=== PATIENT | female | born 1955 | race Caucasian/White ===

== ENCOUNTER 2025-02-13 13:24 | Emergency (ER) | payer MEDICARE, MEDICAID, SELFPAY ==
--- OUTSIDE RECORDS SUMMARY | 2025-02-13 13:26 | XMS_ITS | Clinical Summary ---
Author Organization [facility] Address [address] [address] Phone Care Team Providers Care Dermatologist Name Role Phone Ronda Henriquez MD Primary Care Provider U Ronda Reis MD Unavailable Unavail able Allergies No known active allergies Medications polyethylene glycol (MIRALAX) Powder Use entire 255g bottle with 64oz of clear liquid as directed for colonoscopy prep. 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 Gender Identity Not on file Sexual Orientation Not on file Last Filed Vital Signs Vital Sign Reading Time Taken Comments Blood Pressure - - Pulse - - Temperature - - Respiratory Rate - - Oxygen Saturation - - Inhaled Oxygen Concentration - - Weight 66.7 kg (147 lb) 09/21/2016 7:00 AM CDT Height 160 cm (5' 3) 09/21/2016 7:00 AM CDT Body Mass Index 26.04 09/21/2016 7:00 AM CDT Plan of Treatment Health Maintenance Due Date Last Done Comments Hepatitis C Virus (HCV) Screening 1955 TdaP Immunization 1955 Cologuard 08/25/1999 Colonoscopy 08/25/1999 Colorectal Cancer Screening 08/25/1999 Immunochemical Fecal Occult Blood 08/25/1999 Pneumococcal Immunization (5 0+ years) (1 of 1 - PCV) 2004 Zoster Immunization (1 of 2) 2004 SARS-COV-2 Immunization (1 - 2023-25 season) 2024 Influenza Immunization (#1) 2025 Respiratory Syncytial Virus (RSV) Immunization (Adult) (1 - 1-dose 75+ series) 2029 Mammogram Discontinued 08/07/2016 Hepatitis B Immunization Aged Out No longer eligible based on patient's age to complete this topic Human Papillomavirus (HPV) Immunization Aged Out No longer eligible b ased on patient's age to complete this topic Meningococcal Immunization (ACWY) Aged Out No longer eligible based on patient's age to complete this topic Rotavirus Immunization Aged Out No lo nger eligible based on patient's age to complete this topic Procedures Procedure Name Priority Date/Time Associated Diagnosis Comments JACKI SCREENING BILATERAL DIGITAL W CAD Routine 08/07/2016 11:52 AM INTAKE WORKER Visit for screening mammogram from Last 3 Months or Most Recently Relevant to Health Maintenance Results * JACKI SCREENING BILATERAL DIGITAL W CAD (08/07/2016 11:52 AM INTAKE WORKER) Anatomical Region Laterality Modality breast Bilateral Mammography 08/07/2016 11:3 6 AM INTAKE WORKER Narrative 08/08/2016 7:40 AM INTAKE WORKER - JACKI SCREENING BILATERAL DIGITAL W CAD BILATERAL DIGITAL SCREENING MAMMOGRAM WITH CAD WITH MEDIOLATERAL OBLIQUE CRANIOCAUDAL: 08/07/2016 The study was acquired using digital technology and interpreted from soft copy. Current study was also evaluated with ICAD version 7.2. CLINICAL: Baseline screening. Patient has no complaints. No personal history of cancer. No family history of breast cancer. COMPARISONS: No prior exams were available for comparison. BREAST TISSUE:There are scattered fibroglandular densities in both breasts. FINDINGS: No significant masses, calcifications, or other findings are seen in either breast. IMPRESSION: BI-RAD 1 NEGATIVE There is no mammographic evidence of malignancy. A 1 year screening mammogram is recommended. The patient has been or will be contacted. The patient will be entered into a reminder system with a target due date of 1 year for her next screening exam. Electronically signed by: Taylor cortez/josette:08/07/2016 13:41:19 X Ray Equipment Mechanic: Roz HENDERSON)(M), [facility] letter sent: Normal Exam Reading location: MON BI-RADS: 1 Negative Procedure Note Taylor Hay MD - 08/08/2016 - JACKI SCREENING BILATERAL DIGITAL W CAD BILATERAL DIGITAL SCREENING MAMMOGRAM WITH CAD WITH MEDIOLATERAL OBLIQUE CRANIOCAUDAL: 08/07/2016 The study was acquired using digital technology and interpreted from soft copy. Current study was also evaluated with ICAD version 7.2. CLINICAL: Baseline screening. Patient has no complaints. No personal history of cancer. No family history of breast cancer. COMPARISONS: No prior exams were available for comparison. BREAST TISSUE:There are scattered fibroglandular densities in both breasts. FINDINGS: No significant masses, calcifications, or other findings are seen in either breast. IMPRESSION: BI-RAD 1 NEGATIVE There is no mammographic evidence of malignancy. A 1 year screening mammogram is recommended. The patient has been or will be contacted. The patient will be entered into a reminder system with a target due date of 1 year for her next screening exam. Electronically signed by: Taylor Hay M.D. ml/penrad:08/07/2016 13:41:19 X Ray Equipment Mechanic: Roz NORIEGAR)(M), [facility] letter sent: Normal Exam Reading location: MON BI-RADS: 1 Negative Ronda Henriquez MD IMG MAMMO ORDERABLES Fin al Result from Last 3 Months or Most Recently Relevant to Health Maintenance Insurance MEDICAID [employer] Care Teams Dermatologist Relationship Specialty Start Date End Date Ronda Henriquez MD PCP - General Obstetrics & Gynecology 06/14/16 Ronda Henriquez MD Obstetrics & Gynecology 06/14/16
--- OUTSIDE RECORDS SUMMARY | 2025-02-13 13:26 | XMS_ITS | Clinical Summary ---
Author Organization [facility] Address [address] [place] [id number] Care Team Providers Care Brick Shader Name Role Phone Torrey Hua MD Primary Care Provider [phone] Allergies No known active allergies Medications amLODIPine (NORVASC) 5 MG tablet Take 5 mg by mouth in the morning. 10/01/2023 Active aspirin (ST BOBBI) 81 MG EC tablet Take 81 mg by mouth in the morning. 10/01/2023 Active atorvastatin (LIPITOR) 40 MG tablet Take 40 mg by mouth in the morning. 10/01/2023 Active losartan (COZAAR) 100 MG tablet Take 100 mg by mouth in the morning. 10/01/2023 Active Varenicline Tartrate, Starter, 0.5 MG X 11 & 1 MG X 42 tablet therapy pack Use as directed on package instructions, try to quit smoking after 1 week. 10/01/2023 Active Active Problems Problem Noted Date Diagnosed Date Stenosis of left carotid artery 09/25/2023 Overview (12/11/2023): Last Assessment & Plan: Severe greater than 70% stenosis of the left ICA, overall still below 80% stenosis and remains asymptomatic. Continue ongoing surveillance with repeat carotid duplex in 6 months. Prediabetes 04/15/2023 Peripheral vascular disease 10/11/2022 Overview (12/11/2023): Last Assessment & Plan: Able lower extremity claudication with severe occlusive disease bilaterally. Continue risk factor modification with ASA statin therapy, again strongly urged her to quit smoking. Follow up in 6 months with repeat lower extremity Doppler. Essential hypertension 06/06/2016 Overview (12/11/2023): Last Assessment & Plan: BP Readings from Last 3 Encounters: 10/01/23 142/76 09/25/23 167/73 05/16/23 170/55 Vitals BP 142/76 (BP Location: Left arm, Patient Position: Sitting) Pulse 79 Temp 36.2 C (97.1 F) (Temporal) Resp 16 Ht 157.5 cm (5' 2.01) Wt 66 kg (145 lb 6.4 oz) SpO2 95% BMI 26.59 kg/m Lab Results Component Value Date POTASSIUM 4.0 10/11/2022 Not at goal at this time C/w norvac 5 mg every day Increase losartan to 100 mg every day Family History Medical History Relation Comments Cancer Brother Diabetes Brother Heart disease Brother Hypertension Brother Stroke Brother Heart disease Father Hypertension Father Stroke Father Cancer Mother Hypertension Mother Cancer Sister Dementia Sister Hypertension Sister Stroke Sister Relation Status Comments Brother Father Mother Sister Social History Tobacco Use Types Packs/Day Years Used Date Smoking Tobacco: Every Day Cigarettes Tobacco Cessation:Ready to Q uit: Not Asked; Counseling Given: Not Answered Alcohol Use Standard Drinks/Week Comments Not Currently 0 (1 standard drink = 0.6 oz pur e alcohol) Comments Unknown Sex and Gender Information Value Date Recorded Sex Assigned at Not on file Legal Sex Female 5:02 PM EDT Gender Identity Not on file Sexual Orientation Not on file Last Filed Vital Signs Vital Sign Reading Time Taken Comments Blood Pressure 150/80 02/11/2024 2:04 PM CDT Pulse 83 02/11/2024 2:04 PM CDT Temperature 36.7 C (98 F) 02/11/2024 2:04 PM CDT Respiratory Rate 18 02/11/2024 2:04 PM CDT Oxygen Saturation 97% 02/11/2024 2:04 PM CDT Inhaled Oxygen Concentration - - Weight 64.9 kg (143 lb) 02/11/2024 2:04 PM CDT Height 160 cm (5' 3) 02/11/2024 2:04 PM CDT Body Mass Index 25.33 02/11/2024 2:04 PM CDT Plan of Treatment Health Maintenance Due Date Last Done Comments Breast Cancer Screening 1955 Pneumococcal Vaccine: 50+ Ye ars (1 of 2 - PCV) 1973 Colorectal Cancer Screening: Annual FOBT 08/25/2003 Colorectal Cancer Screening: Sigmoidoscopy 08/25/2003 Influenza Vaccine (#1) 2025 Colorectal Cancer Screening: Colonoscopy 01/29/2033 01/29/2023 Hepatitis B Vaccine Aged Out No longe r eligible based on patient's age to complete this topic Insurance Medicare Medicaid [place] Care Teams Brick Shader Relationship Specialty Start Date End Date Torrey Hua MD [address] [place] [address] [place] [address] [place] [address] PCP - General Family Medicine 10/07/23
--- OUTSIDE RECORDS SUMMARY | 2025-02-13 13:26 | XMS_ITS | Clinical Summary ---
Author Organization [facility] Healthcare Address [address] [place] [address] Care Team Providers Care Coining Press Operator Name Role Phone Ebonie Hua MD Primary Care Provider [phone] Allergies No known active allergies Medications aspirin 81 mg enteric coated tablet Take 1 tablet (81 mg total) by mouth daily 100 tablet 1 4 Active coenzyme Q10 (Co Q-10) 10 mg capsule Take 1 capsule (10 mg total) by mouth daily 90 capsule 4 Active Additional Information Patient not taking.Informant: Self, Child, Reported on 10/27/2024 carvediloL (COREG) 6.25 mg tablet Take 1 tablet (6.25 mg total) by mouth 2 (two) times a day with meals 180 tablet 1 4 Active vitamin b complex tablet Take 1 tablet by mouth daily Active cholecalciferol (VITAMIN D-3) 99339 unit capsule Take 1 capsule (10,000 Units total) by mouth daily Active losartan (COZAAR) 100 mg tablet TAKE 1 TABLET(100 MG) BY MOUTH DAILY 90 tablet 1 5 Active amLODIPine (NORVASC) 5 mg tablet Take 1.5 tablets (7.5 mg total) by mouth daily 135 tablet 1 5 04/25/20 25 Active atorvastatin (LIPITOR) 40 mg tablet TAKE 1 TABLET(40 MG) BY MOUTH DAILY 90 tablet 1 5 Active Brilinta 90 mg tablet TAKE 1 TABLET(90 MG) BY MOUTH TWICE DAILY 60 tablet 1 5 Active Active Problems Problem Noted Date Diagnosed Date Hypertensive kidney disease with stage 4 chronic kidney disease 10/27/2024 Assessment & Plan (10/27/2024 1:57 PM CDT): BP Readings from Last 3 Encounters: 10/27/24 158/80 09/30/24 135/79 06/24/24 (!) 178/85 Vitals BP 158/80 (BP Location: Left arm, Patient Position: Sitting) Pulse 74 Resp 16 Ht 157.5 cm (5' 2.01) Wt 60.8 kg (134 lb 1.6 oz) SpO2 98% BMI 24.52 kg/m Lab Results Component Value Date POTASSIUM 4.1 06/01/2024 Not at goal Referralt o nephro due to worsening ckd Increase norvasc to 7.5 mg every day Continue losartan 100 mg every day, coreg 6.25 bid Carotid stenosis, asymptomatic, left 06/01/2024 Carotid stenosis, left 05/06/2024 Assessment & Plan (05/08/2024 10:31 AM LABORATORY IMMUNOLOGIST): High-grade left ICA stenosis. Risks benefits alternatives to left TCAR discussed, risks including bleeding, infection, nerve injury, stroke, need for further surgery. She wished to proceed. Continue ASA Plavix statin therapy. Stenosis of left carotid artery 09/25/2023 Assessment & Plan (10/01/2024 10:45 AM CDT): Right ICA stent is patent and current duplex. Mild stenosis to the left ICA. Remains asymptomatic. Continue statin aspirin and Brilinta follow-up in 6 months for routine surveillance. Assessment & Plan (06/24/2024 10:15 AM LABORATORY IMMUNOLOGIST): Left TCAR 06/01/2024. Patient continues to do well. Continue aspirin, Brilinta risk factor modifications and follow up in 3 months with a carotid duplex. Assessment & Plan (04/01/2024 12:31 PM CDT): Moderate stenosis to the right with severe stenosis to the left internal carotid artery. Patient remains asymptomatic. Recommend smoking cessation, continue aspirin and statin therapy follow-up in the next 1-2 weeks with CTA of the carotids. Assessment & Plan (09/25/2023 12:42 PM CDT): Severe greater than 70% stenosis of the left ICA, overall still below 80% stenosis and remains asymptomatic. Continue ongoing surveillance with repeat carotid duplex in 6 months. Current smoker 04/15/2023 Assessment & Plan (04/22/2024 10:53 AM LABORATORY IMMUNOLOGIST): Recommend smoking cessation Ct lung cancer sc now Assessment & Plan (04/01/2024 12:31 PM CDT): Patient with history of tobacco abuse who is a current everyday 1/2 pack per day smoker. I had a greater than 3 minute discussion with the patient on the importance of smoking cessation and the negative affects on their cardiovascular health. Patient understands importance of cessation. Assessment & Plan (10/01/2023 2:11 PM CDT): Coty cifuentes Discussed quitting smoking Prediabetes 04/15/2023 Medicare annual wellness visit, subsequent 04/15 Assessment & Plan (04/22/2024 10:53 AM LABORATORY IMMUNOLOGIST): A yearly Medicare Annual Wellness Visit has been performed today. Aruna Larry is not up to date on screening tests. She is in need of DEXA- these have been ordered. She is not up to date on needed preventative vaccinations. He is getting his covid-19 vaccination after he leaves here this morning. Assessment & Plan (04/15/2023 12:38 PM CDT): A yearly Medicare Annual Wellness Visit has been performed today. Aruna Larry is not up to date on screening tests. She is in need of DEXA- these have been ordered. She is not up to date on needed preventative vaccinations. He is getting his covid-19 vaccination after he leaves here this morning. Bruit of left carotid artery 01/30/2023 Assessment & Plan (03/04/2023 7:37 AM CDT): Severe greater than 70% stenosis of the left internal carotid artery, she is asymptomatic and this is less than 80% stenosis so I have recommended continuing surveillance with repeat carotid duplex in 6 months. Continue risk factor modification with ASA statin therapy and good blood pressure control. Assessment & Plan (01/30/2023 11:00 AM CDT): Carotid duplex Personal history of colonic polyps 12/05/2022 Encounter for screening colonoscopy 12/05/2022 PVD (peripheral vascular disease) 10/11/2022 Assessment & Plan (09/25/2023 12:41 PM CDT): Able lower extremity claudication with severe occlusive disease bilaterally. Continue risk factor modification with ASA statin therapy, again strongly urged her to quit smoking. Follow up in 6 months with repeat lower extremity Doppler. Assessment & Plan (03/04/2023 7:37 AM CDT): Known chronic occlusion of the infrarenal aorta with stable claudication to bilateral lower extremities. I strongly encouraged her to quit smoking. Continue risk factor modification with ASA statin therapy and good blood pressure control. Follow up in 6 months for repeat Doppler. Assessment & Plan (01/30/2023 11:00 AM CDT): Claudication of bilateral lower extremities with known infrarenal aortic occlusion and iliac occlusion. Overall no life-limiting claudication rest pain or wounds. Continue risk factor modification with ASA and statin therapy. ABIs ordered for further evaluation. I strongly encouraged her to quit smoking. Centrilobular emphysema 10/11/2022 Assessment & Plan (04/15/2023 12:27 PM CDT): Stable at this time Start wellbutrin for smoking cessation Abdominal aortic atherosclerosis 10/11/2022 Assessment & Plan (04/15/2023 12:28 PM CDT): Following with vascular Continue lipitor 40 mg every day and asa 81 mg every day Essential hypertension 10/11/2022 Assessment & Plan (05/08/2024 10:31 AM LABORATORY IMMUNOLOGIST): Stable continue amlodipine Assessment & Plan (04/22/2024 11:00 AM LABORATORY IMMUNOLOGIST): BP Readings from Last 3 Encounters: 04/22/24 160/90 04/01/24 (!) 196/85 10/01/23 142/76 Vitals BP 160/90 (BP Location: Left arm, Patient Position: Sitting) Pulse 87 Resp 16 Ht 157.5 cm (5' 2.01) Wt 63.2 kg (139 lb 6.4 oz) SpO2 98% BMI 25.49 kg/m Lab Results Component Value Date POTASSIUM 3.4 02/06/2024 Not at goal at this time C/w norvasc 10 mg every day C/w losartan1 00 mg every day, start coreg 6.25 mg bid Assessment & Plan (10/01/2023 2:10 PM CDT): BP Readings from Last 3 Encounters: 10/01/23 [...] Increase losartan to 100 mg every day Assessment & Plan (09/25/2023 12:41 PM CDT): Stable continue amlodipine 5 mg. Assessment & Plan (04/15/2023 12:22 PM CDT): BP Readings from Last 3 Encounters: 04/15/23 164/81 01/29/23 148/90 10/11/22 140/70 Vitals BP 164/81 Pulse 85 Temp 36.2 C (97.1 F) (Temporal) Resp 16 Wt 66.2 kg (146 lb) SpO2 99% BMI 26.70 kg/m Lab Results Component Value Date POTASSIUM 4.0 10/11/2022 Not at goal at this time C/w norvac 5 mg every day Start losartan 50 mg every day Assessment & Plan (03/04/2023 7:38 AM CDT): Stable continue amlodipine 5 mg. Assessment & Plan (01/30/2023 11:00 AM CDT): Stable continue amlodipine 5 mg. Assessment & Plan (10/11/2022 12:50 PM CDT): BP Readings from Last 3 Encounters: 10/11/22 140/70 05/01/21 (!) 185/83 04/03/18 137/78 Vitals BP 140/70 Pulse 89 Resp 16 Ht 157.5 cm (5' 2) Wt 68.9 kg (152 lb) SpO2 96% BMI 27.80 kg/m Lab Results Component Value Date POTASSIUM 4.3 02/09/2021 Not at goal at this time Will start norvac 5 mg every day Mixed hyperlipidemia 10/11/2022 Assessment & Plan (05/08/2024 10:31 AM LABORATORY IMMUNOLOGIST): Stable continue Lipitor Assessment & Plan (04/22/2024 10:53 AM LABORATORY IMMUNOLOGIST): Lab Results Component Value Date CHOL 132 10/03/2023 CHOL 211 (H) 10/11/2022 CHOL 209 (H) 02/09/2021 Lab Results Component Value Date HDL 37 (L) 10/03/2023 HDL 44 10/11/2022 HDL 40 02/09/2021 Lab Results Component Value Date LDLCALC 64 10/03/2023 LDLCALC 120 10/11/2022 LDLCALC 136 (H) 02/09/2021 LDL 136 (H) 11/12/2017 Lab Results Component Value Date TRIG 157 (H) 10/03/2023 TRIG 237 (H) 10/11/2022 TRIG 164 (H) 02/09/2021 No results found for: POCCHDLR No results found for: POCNONHDL No results found for: POCCHLPL Not at goal at this time Continue lipitor 40 mg every day Assessment & Plan (10/01/2023 2:11 PM CDT): Lab Results Component Value Date CHOL 211 (H) 10/11/2022 CHOL 209 (H) 02/09/2021 CHOL 210 (H) 11/12/2017 Lab Results Component Value Date HDL 44 10/11/2022 HDL 40 02/09/2021 HDL 47 (L) 11/12/2017 Lab Results Component Value Date LDLCALC 120 10/11/2022 LDLCALC 136 (H) 02/09/2021 LDL 136 (H) 11/12/2017 Lab Results Component Value Date TRIG 237 (H) 10/11/2022 TRIG 164 (H) 02/09/2021 TRIG 138 11/12/2017 No results found for: POCCHDLR No results found for: POCNONHDL No results found for: POCCHLPL Not at goal at this time Continue lipitor 40 mg every day Assessment & Plan (09/25/2023 12:41 PM CDT): Stable continue Lipitor 40 mg. Assessment & Plan (01/30/2023 11:00 AM CDT): Stable continue Lipitor 40 mg. Encounters Date Type Department Care Team Description 11/26/2024 Telephone [facility] Primary Care at [address] [place] [phone] Ebonie Hua MD Appointment from Last 3 Months Immunizations Immunization Administration Dates Next Due Influenza, Unspecified 09/14/2024(Deferr ed: Patient Refused),04/22/2024(Deferred: Patient Refused),04/15/2023(Deferred: Patient Refused) Pneumococcal Conjugate, Unspecified 04/15/2023(D eferred: Patient Refused) Tetanus Toxoid, Unspecified 06/17/2010 Surgical History Surgery Date Site/Laterality Comments COLONOSCOPY SECTION TONSILLECTOMY Medical History Medical History Date Comments Hypertension Smoking Family History Medical History Relation Name Comments Diabetes Brother 1 Hudson Hapgood Early Brother 2 Coyr Hapgood Depression Daughter Katey Larry Heart disease Father Yfn Matagood Diabetes Maternal Grandmother Melinda Majano Arthritis Mother Taylor Valentin Cancer Mother Taylor Valentin Breast cancer Sister 1 Stroke Sister 2 Courtney Jade Relation Name Status Comments Brother 1 Hudson Hapgood Brother 2 Cory Hapgood Daughter Katey Larry Father Yfn Mendiola Maternal Grandmother Melinda Majano Mother Taylor Valentin Sister 1 Sister 2 Courtney Jade Social History Tobacco Use Types Packs/Day Years Used Date Smoking Tobacco: Every Day Cigarettes 1 15 Smokeless Tobacco: Never Tobacco Cessation:Ready to Q uit: Not Asked; Counseling Given: Not Answered [facility] Utilities Answer Date Recorded In the past 12 months has th e electric, gas, oil, or water company threatened to shut off services in your home? No 06/02/2024 Social Connection and Isolation Panel Answer Date Recorded In a typical week, how many times do you talk on the phone with family, friends, or neighbors? More than three times a week 06/02/2024 How often do you get togethe r with friends or relatives? More than three times a week 06/02/2024 How often do you attend chur ch or restorationism services? Never 06/02/2024 Do you belong to any clubs o r organizations such as zoroastrianism groups, unions, fraternal or athletic groups, or school groups? No 06/02/2024 How often do you attend meet ings of the clubs or organizations you belong to? Never 06/02/2024 Are you , , di vorced, , never , or living with a partner? 06/02/2024 AUDIT-C Answer Date Recorded Q1: How often do you have a drink containing alcohol? Never 06/01/2024 Q2: How many drinks containi ng alcohol do you have on a typical day when you are drinking? Patient does not drink Q3: How often do you have si x or more drinks on one occasion? Never 06/01/2024 Overall Financial Resource Strain (CARDIA) Answe r Date Recorded How hard is it for you to pa y for the very basics like food, housing, medical care, and heating? Not very hard 06/02/2024 PHQ-2 Answer Date Recorded PHQ-2 Total Score (If total score is 3 or more points, staff should administer the PHQ-9) 0 10/27/2024 Hunger Vital Sign Answer Date Recorded Within the past 12 months, y ou worried that your food would run out before you got the money to buy more. Never true 06/02/20 24 Within the past 12 months, t he food you bought just didn't last and you didn't have money to get more. Never true 06/02/2024 PRAPARE - Transportation Answer Date Re corded In the past 12 months, has l ack of transportation kept you from medical appointments or from getting medications? No 05/17 In the past 12 months, has l ack of transportation kept you from meetings, work, or from getting things needed for daily living? No 06/02/2024 Housing Stability Vital Sign Answer Vega e Recorded In the last 12 months, was t here a time when you were not able to pay the mortgage or rent on time? No 06/02/2024 In the past 12 months, how m any times have you moved where you were living? 0 06/02/2024 At any time in the past 12 m [facility], were you homeless or living in a halfway (including now)? No 06/02/2024 Personal Safety Answer Date Recorded Have you ever been in or are you currently in a harmful physical or emotional relationship or is someone making you feel afraid or unsafe? Denies 06/01/2024 Comments No Sex and Gender Information Value Date Recorded Sex Assigned at Not on file Legal Sex Female 10:01 AM CDT Gender Identity Female 01/24/2024 2:27 PM CDT Sexual Orientation Straight 01/24/2024 2: 27 PM CDT Obstetrics History Para Term AB IAB SAB Ectopic Multiple Livin g Live Births 2 2 2 Date Outcome GA Total Labor Labor/2nd/3rd Weight Sex Type Anes PTL Miracle A1 A5 Name Clin Term Term Last Filed Vital Signs Vital Sign Reading Time Taken Comments Blood Pressure 158/80 10/27/2024 1:34 PM CDT did not take meds Pulse 74 10/27/2024 1:34 PM CDT Temperature 36.6 C (97.8 F) 06/01/2024 10:00 PM LABORATORY IMMUNOLOGIST Respiratory Rate 16 10/27/2024 1:34 PM CDT Oxygen Saturation 98% 10/27/2024 1:3 4 PM CDT Inhaled Oxygen Concentration - - Weight 60.8 kg (134 lb 1.6 oz) 10/27/2024 1:34 PM CDT Height 157.5 cm (5' 2.01) 10/27/2024 1 :34 PM CDT Body Mass Index 24.52 10/27/2024 1:34 PM CDT Plan of Treatment Health Maintenance Due Date Last Done Comments DTaP/Tdap/Td Vaccine (1 - Tdap) 1965 Hepatitis B Screening 1972 Pneumococcal vaccine 65+ (1 of 2 - PCV) 1973 Zoster Vaccine (1 of 2) 2004 Osteoporosis Screening-Bone Density Scan 02/09/2023 02/09/2021 Breast Cancer Screening-Mammogram 11/18/2023 11/17/2022, 02/09/2021, 08/07/2016 Influenza Vaccine (#1) 2025 Well Visit 65+ 04/22/2025 04/22/2024, 04/15/2023 Depression Screening 10/27/2025 10/27/2024, 04/22/2024, 10/01/2023, Additional history exists Fall Risk Assessment 10/27/2025 10/27/2024, 06/01/2024, 04/22/2024, Additional history exists Colon Cancer Screening-Colonoscopy 01/29/2033 01/29/2023, 03/28/2018 Hepatitis C Screening Completed 10/11/2022 Colon Cancer Screening-CT Colonography Discontinued 01/29/2023, 03/28/2018 Colon Cancer Screening-DNA Stool Discontinued 01/30/20 23, 03/28/2018 Colon Cancer Screening-FIT Discontinued 01/29/2023, Colon Cancer Screening-Sigmoidoscopy Discontinued 01/29/2023, 03/28/2018 Medical Devices Implanted Type Area Senior Pricing Analyst Device Identifier Shelf Expiration Date Model / Serial / Lot [employer] Enroute Uber Flex 8mm .065in 40mm 57cm Delivery System Angle Tip Sr-0840-[id number] - [id number] Implanted:Qty: 1 on 06/01/2024 by Niko Powell MD at [facility] Stent Left: Carotid [employer] [id number] 08/14/2026 SR-0840-C S / / [id number] Procedures Procedure Name Priority Date/Time Associated Diagnosis Comments COLONOSCOPY 01/29/2023 8:58 AM CDT SCREENING MAMMOGRAM BILATERAL W MATT Schedule Routine, Read Routine (OP Routine) 11/17/2022 12:35 PM CDT Visit for screening mammogram HEPATITIS C ANTIBODY Routine 10/11/2022 1:30 PM CDT Preventative health care DEXA AXIAL SKELETON BONE DENSITY 1 OR MORE SITES Schedule Routine, Read Routine (OP Routine) 02/09/2021 9:06 AM CDT Abdominal pain, unspecified abdominal location from Last 3 Months or Most Recently Relevant to Health Maintenance Results * COLONOSCOPY (01/29/2023 8:58 AM CDT) Anatomical Region Laterality Modality Other Narrative Procedure Note Nima Kee MD - 01/29/2023 8:58 AM CDT [facility] Patient Name: Aruna Larry Procedure Date: 01/29/2023 8:58 AM Date of : 1955 Admit Type: Outpatient Age: 67 Gender: Female Attending MD: Nima Kee M.D. Room: [facility] ENDOSCOPY ROOM 1 Note Status: Finalized Patient Profile: This is a 67 year old female. History of polyps. No family history of colon cancer Procedure: Colonoscopy Indications: High risk colon cancer surveillance: Personalhistory of colonic polyps, Last colonoscopy: March 2018 Referring MD: Ebonie Hua M.D. Providers: Nima Kee M.D. Impression: - External and prolapse internal hemorrhoids - Three 10 to 12 mm polyps in the descending colon, removed with a cold snare. Resected andretrieved. - Granularity in the distal rectum. Biopsied. Recommendation: - Await pathology results. - Repeat colonoscopy in 3 years for screeningpurposes. - Continue present medications. Medicines: Monitored Anesthesia Care Complications: No immediate complications. Estimated Blood Loss: Estimated blood loss: none. Procedure: Pre-Anesthesia Assessment: - Prior to the procedure, a History and Physicalwas performed, and patient medications and allergieswere reviewed. The patient's tolerance of previous anesthesia was also reviewed. The risks andbenefits of the procedure and the sedation options and risks were discussed with the patient. All questions were answered, and informed consent was obtained. Prior Anticoagulants: The patient has taken noanticoagulant or antiplatelet agents. ASA Grade Assessment: Per anesthesia note and evaluation. After reviewing the risks and benefits, the patient was deemed in satisfactory condition to undergo the procedure. The benefits, risks and alternatives of theprocedure and sedation were discussed and informed consentwas obtained. All questions were answered. Please referto the signed informed consent document in the medical record. The bowel preparation used was Miralax and bisacodyl tablets via split dose instruction. The scope was passed under direct vision. The Pediatric Colonoscope [id number]-[id number] was introducedthrough the anus and advanced to the the cecum, identifiedby appendiceal orifice and ileocecal valve. Thequality of the bowel preparation was good. Bowel prep was administered using a split dose. Findings: Medium-sized external hemorrhoids and prolapse internal hemorrhoidswere found on perianal exam. The sigmoid colon, transverse colon, ascending colon and cecumappeared normal. Three sessile polyps were found in the descending colon. The polypswere 10 to 12 mm in size. These polyps were removed with a cold snare. Resection and retrieval were complete. A localized area of granular mucosa and mildly thickened folds wasfound in the distal rectum. Biopsies were taken with a cold forceps for histology. Internal hemorrhoids were found during retroflexion. The hemorrhoids were medium to large in size Electronically signed by Nima Kee M.D. Nima Kee M.D. 01/29/2023 11:10:34 AM Number of Addenda: 0 Note Initiated On: 01/29/2023 8:58 AM Procedure Code(s): --- Professional --- 36182, Colonoscopy, flexible; with removal of tumor(s), polyp(s), or other lesion(s) by snare technique 50521, 59, Colonoscopy, flexible; with biopsy, single or multiple Diagnosis Code(s): --- Professional --- Z86.010, Personal history of colonic polyps K64.8, Other hemorrhoids D12.4, Benign neoplasm of descending colon K62.89, Other specified diseases of anus and rectum CPT copyright 2020 [employer]. All rights reserved. The codes documented in this report are preliminary and upon house cleaner supervisor reviewmay be revised to meet current compliance requirements. Recognized by the [employer] for promoting quality in endoscopy Nima Kee MD ENDOSCOPY PROCEDURES Final Result * Screening Mammogram Bilateral W Matt (11/17/2022 12:35 PM CDT) Anatomical Region Laterality Modality Breast Bilateral Mammography 11/18/2022 7:54 AM CDT Impressions 11/18/2022 7:54 AM CDT There is no mammographic evidence of malignancy. A 1 year screening mammogram is recommended. BI-RADS: 1 - Negative. The patient has been or will be contacted. The patient will be entered into a reminder system with a target due date of 1 year for her next mammogram. Electronically signed by: GOPAL Norwood 11/18/2022 7:54 AM CDT EXAMINATION: SCREENING MAMMOGRAM BILATERAL W MATT ORDERING HEALTHCARE PROVIDER: EBONIE HUA HISTORY: Routine screening mammography. COMPARISON: 02/09/2021, 08/07/2016. TECHNIQUE: CC and MLO views of both breasts were obtained with digital technique using digital breast tomosynthesis with C view. Computer aided detection was utilized. FINDINGS: DENSITY: The breasts have scattered areas of fibroglandular density. BREASTS: There is no new suspicious finding in either breast on mammogram. Ebonie Hua MD IMG MAMMO PROCEDURES Final Resul t * Hepatitis C antibody (10/11/2022 1:30 PM CDT) Hep C Ab Nonreactive Nonreactive MARCOS GUTIERREZ (JF) Comment: Interpretive Data Nonreactive: Antibodies to HCV not detected. Does NOT exclude the possibility of recent exposure to HCV. Equivocal: Equivocal for HCV antibodies. Supplemental molecular testing will be automatically performed to determine infection status in accordance with current CDC screening recommendations. Reactive: Positive for HCV antibodies. This may represent current or past HCV infection. Supplemental molecular testing will be automatically performed to determine current infection status in accordance with current CDC screening recommendations. Interpretive data was last revised on 2019. Testing performed by: [facility], [address] [place] [address]., [id number] Blood 10/11/2022 1:30 PM CDT 10/11/2022 3:42 PM CDT Ebonie Hua MD LAB MICROBIOLOGY - GENERAL ORDER JOSS Final Result MARCOS GUTIERREZ (JF) 1 [facility] Department [place] [address] * Dexa Axial Skeleton Bone Density 1 or 2 Site (02/09/2021 9:06 AM CDT) Anatomical Region Laterality Modality Body N/A Other 02/09/2021 9:58 AM CDT Narrative 02/09/2021 9:59 AM CDT EXAM DESCRIPTION: DEXA AXIAL SKELETON BONE DENSITY 1 OR MORE SITES REASON FOR STUDY: Post-menopausal female, screening for osteoporosis. Senior Pricing Analyst/Model: [employer] A (S/N [id number]) CLINICAL INFORMATION: Current height: 63 inches Maximum height: 63 inches Weight: 151.4 pounds Risk factors: Current tobacco use COMPARISON: None available. FINDINGS: AP LUMBAR SPINE L1-L4: Total BMD is 0.933 g/cm2 T-score is -1.0 LEFT HIP: Total BMD is 0.824 g/cm2 T-score is -1.0 Femoral neck BMD is 0.710 g/cm2 T-score is -1.3 IMPRESSION: 1. Low bone mass by WHO criteria. 2. The WHO fracture risk assessment tool (FRAX) indicates that the 10 year risk for a major osteoporotic fracture is 8.7% and the 10 year risk for a hip fracture is 1.3%. The FRAX tool has not been validated in patients currently or previously treated with pharmacotherapy for osteoporosis. In such patients, clinical judgement must be exercised in interpreting FRAX scores as the fracture risk may be overestimated. REFERENCE: Bone mineral density: Normal (T-score above or = -1.0) Low bone mass (T-score between -1.0 and -2.5) replaces the previously used term osteopenia Osteoporosis (T-score = or below -2.5) Medical evaluation for secondary causes of low bone mineral density may be appropriate. FRAX is a World Health Organization validated fracture risk assessment tool that calculates a person's 10 year probability of a major osteoporosis related fracture and hip fracture. According to the National Osteoporosis Foundation guidelines, postmenopausal women and men age 50 or older with low bone mass and a 10 year probability of a major osteoporosis related fracture = or greater than 20% or a 10 year probability of a hip fracture = or greater than 3% should be considered for treatment. For further information, including treatment recommendations, please refer to the 2013 ISCD Official Positions (http://www.iscd.org) and the NOF's Clinician's Guide to Prevention and Treatment of Osteoporosis (http://www.nof.org/professionals/clinical-guidelines) THIS IS AN ELECTRONICALLY VERIFIED FINAL REPORT 02/09/2021 9:59 AM - Electronically signed by Feroz Álvarez M.D. AB: Report ID: [id number] Reading Location: [place] [address] Procedure Note Feroz Álvarez MD - 02/09/2021 EXAM DESCRIPTION: DEXA AXIAL SKELETON BONE DENSITY 1 OR MORE SITES REASON FOR STUDY: Post-menopausal female, screening for osteoporosis. Senior Pricing Analyst/Model: H[employer] Horizon A (S/N [id number]) CLINICAL INFORMATION: Current height: 63 inches Maximum height: 63 inches Weight: 151.4 pounds Risk factors: Current tobacco use COMPARISON: None available. FINDINGS: AP LUMBAR SPINE L1-L4: Total BMD is 0.933 g/cm2 T-score is -1.0 LEFT HIP: Total BMD is 0.824 g/cm2 T-score is -1.0 Femoral neck BMD is 0.710 g/cm2 T-score is -1.3 IMPRESSION: 1. Low bone mass by WHO criteria. 2. The WHO fracture risk assessment tool (FRAX) indicates that the 10 year risk for a major osteoporotic fracture is 8.7% and the 10 year risk for ahip fracture is 1.3%. The FRAX tool has not been validated in patients currently or previously treated with pharmacotherapy for osteoporosis. In such patients, clinical judgement must be exercised in interpreting FRAX scores as the fracturerisk may be overestimated. REFERENCE: Bone mineral density: Normal (T-score above or = -1.0) Low bone mass (T-score between -1.0 and -2.5) replaces thepreviously used term osteopenia Osteoporosis (T-score = or below -2.5) Medical evaluation for secondary causes of low bone mineral density may be appropriate. FRAX is a World Health Organization validated fracture risk assessmenttool that calculates a person's 10 year probability of a major osteoporosisrelated fracture and hip fracture. According to the National OsteoporosisFoundation guidelines, postmenopausal women and men age 50 or older with low bonemass and a 10 year probability of a major osteoporosis related fracture = or greater than 20% or a 10 year probability of a hip fracture = or greaterthan 3% should be considered for treatment. For further information, including treatment recommendations, please referto the 2013 ISCD Official Positions (http://www.iscd.org) and the NOF's Clinician's Guide to Prevention and Treatment of Osteoporosis (http://www.nof.org/professionals/clinical-guidelines) THIS IS AN ELECTRONICALLY VERIFIED FINAL REPORT 02/09/2021 9:59 AM - Electronically signed by Feroz Álvarez M.D. AB: Report ID: [id number] Reading Location: [place] [address] [place] Hu MD IMG DXA PROCEDURES Final Result from Last 3 Months or Most Recently Relevant to Health Maintenance Insurance MEDICARE [facility] Address: [facility] [address] [place] [address] [facility] MEDICARE [place] MEDICARE [facility] Address: [address] [place] [id number] [employer] Advance Directives For more information, please contact: [phone] * Full Code (Latest Code Status on File) Date Activated Date Inactivated Comments 06/01/2024 10:40 AM 06/02/2024 3:27 PM * Full Code Date Activated Date Inactivated Comments 01/29/2023 9:01 AM 01/29/2023 4:09 PM * Full Code Date Activated Date Inactivated Comments 01/29/2023 9:01 AM 01/29/2023 9:01 AM * Full Code Date Activated Date Inactivated Comments 03/28/2018 10:03 AM 03/28/2018 2:06 PM Care Teams Coining Press Operator Relationship Specialty Start Date End Date Ebonie Hua MD [address] [facility] [address] [place] [address] [place] [id number] PCP - General Family Medicine 10/11/22
--- OUTSIDE RECORDS SUMMARY | 2025-02-13 13:26 | XMS_ITS | Encounter Summary ---
Author Organization [facility] Facility Care Team Providers Care Mule Developer Name Role Phone Bernarda Rudd MD Primary Care Provider [phone] [place] Hu MD Primary Care Provider + Torrey Hua MD Primary Care Provider [phone] Encounter Details Date Type Department Care Team (Latest Contact Info) Description 03/28/2018 Orders Only [facility] CLINCONV ProviderMelissa MD [address] [place] [address] Social History Tobacco Use Types Packs/Day Years Used Date Smoking Tobacco: Never Smokeless Tobacco: Never Comments Unknown Sex and Gender Information Value Date Recorded Sex Assigned at Not on file Legal Sex Female 10:01 AM CDT Gender Identity Female 01/24/2024 2:27 PM CDT Sexual Orientation Straight 01/24/2024 2: 27 PM CDT documented as of this encounter Plan of Treatment Not on file documented as of this encounter Procedures Procedure Name Priority Date/Time Associated Diagnosis Comments COLONOSCOPY - SCAN 03/28/2018 12 :00 AM CDT documented in this encounter Results * COLONOSCOPY - SCAN (03/28/2018 12:00 AM CDT) Narrative 03/28/2018 12:00 AM CDT Ordered by an unspecified provider. Historical Provider Final Res ult documented in this encounter Visit Diagnoses Not on filedocumented in this encounter Care Teams Mule Developer Relationship Specialty Start Date End Date Bernarda Rudd MD PCP - General 01/13/18 02/05/21 [place] [id number] [address] PCP - General 02/06/21 10/10/22 Torrey Hua MD [address] [place] [address] [address] [place] [address] [place] [id number] PCP - General Family Medicine 10/11/22 documented as of this encounter
--- OUTSIDE RECORDS SUMMARY | 2025-02-13 13:26 | XMS_ITS | Encounter Summary ---
Author Organization [facility] Facility Care Team Providers Care Offender Job Retention Specialist Name Role Phone Bernarda Rudd MD Primary Care Provider [phone] [place] Hu MD Primary Care Provider + Torrey Hua MD Primary Care Provider [phone] Encounter Details Date Type Department Care Team (Latest Contact Info) Description 04/07/2018 Orders Only [facility] CLINCONV ProviderMelissa MD [address] [place] [id number] Social History Tobacco Use Types Packs/Day [...] Date/Time Associated Diagnosis Comments COLONOSCOPY - SCAN 04/07/2018 12 :00 AM CDT documented in this encounter Results * COLONOSCOPY - SCAN (04/07/2018 12:00 AM CDT) Narrative 04/07/2018 12:00 AM CDT Ordered by an unspecified provider. Historical Provider Final Res ult documented in this encounter Visit Diagnoses Not on filedocumented in this encounter Care Teams Offender Job Retention Specialist Relationship Specialty Start Date End Date Bernarda Rudd MD PCP - General 01/13/18 02/05/21 [place] [address] [address] PCP - General 02/06/21 10/10/22 Torrey Hua MD [address] [place] [address] [address] [place] [address] [place] [id number] PCP - General Family Medicine 10/11/22 documented as of this encounter
--- OUTSIDE RECORDS SUMMARY | 2025-02-13 13:26 | XMS_ITS | Encounter Summary ---
Author Organization [facility] Facility Care Team Providers Care Laborer Aquatic Life Name Role Phone Bernarda Rudd MD Primary Care Provider [phone] [place] Hu MD Primary Care Provider + Torrey Hua MD Primary Care Provider [phone] Encounter Details Date Type Department Care Team (Latest Contact Info) Description 01/13/2018 Orders Only [facility] CLINCONV ProviderMelissa MD [address] [place] [address] Social History Tobacco Use Types Packs/Day Years Used Date Smoking Tobacco: Never Assessed Comments Unknown Sex and Gender Information Value Date Recorded Sex Assigned at Not on file Legal Sex Female 10:01 AM CDT Gender Identity Female 01/24/2024 2:27 PM CDT Sexual Orientation Straight 01/24/2024 2: 27 PM CDT documented as of this encounter Plan of Treatment Not on file documented as of this encounter Procedures Procedure Name Priority Date/Time Associated Diagnosis Comments SCAN - LABS 02/05/2018 12:00 AM CDT documented in this encounter Results * SCAN - LABS (02/05/2018 12:00 AM CDT) Narrative 02/05/2018 12:00 AM CDT Ordered by an unspecified provider. Historical Provider Final Res ult documented in this encounter Visit Diagnoses Not on filedocumented in this encounter Care Teams Laborer Aquatic Life Relationship Specialty Start Date End Date Bernarda Rudd MD PCP - General 01/13/18 02/05/21 [place] [address] [facility] [address] [place] [address] PCP - General 02/06/21 10/10/22 Torrey Hua MD [address] [facility] [address] [place] [address] [place] [id number] PCP - General Family Medicine 10/11/22 documented as of this encounter
[2025-02-13 13:33] VITALS: BP 217/80; PULSE 80; RESP 20; TEMP 36.7; O2SAT 99
--- NOTE | 2025-02-13 13:34 | ED_ITS ---
HPI - Eye Problem General Chief complaint: Skin/Abscess/Foreign Body Stated complaint: PINK EYE,RASH Time Seen by Provider: 02/13/25 13:41 Source: patient Mode of arrival: ambulatory Limitations: no limitations History of Present Illness HPI Narrative: 69 y/o female presented for c/o right eye swelling and redness. Onset yesterday. Endorses itching around the eye. Also reports right forearm itching and redness. Reports exposure to pink eye one week ago. Denies vision changes, photophobia, fb sensation, or purulent drainage. Pt legally blind left eye. Pt with elevated BP on arrival, states she did not take her BP meds today. chief complaint: eye pain Related Data Home Medications ?Medication ?Instructions ?Recorded ?Confirmed ?Last Taken ?Type aspirin .ROUTE 02/13/25 Unknown His tory atorvastatin 40 mg tablet mg 02/13/25 Unknown History losartan 100 mg tablet mg 02/13/25 Unknown History ticagrelor 90 mg tablet (Brilinta) mg 02/13/25 Unknow n History Allergies Allergy/AdvReac Type Severity Reaction Status Date / Time No Known Allergies Allergy Verified 02/13/25 13:39 Review of Systems Review of Systems: CONSTITUTIONAL: Denies body aches, fever, chills EYES:Endorses swelling, redness and itching right eye; Denies visual changes FB sensation, photophobia ENT: Denies rhinorrhea, congestion, sore throat, or otalgia. CARDIOVASCULAR: Denies chest pain, palpitations RESPIRATORY: Denies cough or dyspnea. GASTROINTESTINAL: Denies abdominal pain, nausea, vomiting, or diarrhea. SKIN: reports rash, itching, rigth arm and right eye MUSCULOSKELETAL: Denies back pain, joint pain, or myalgia. NEUROLOGIC: Denies headache, numbness, tingling, or weakness. All systems reviewed & are unremarkable except as noted in HPI and below PMFSH Comments At time of signature, I have reviewed and agree with nursing past medical, surgical, social and family history unless otherwise noted. Please see nursing chart for further information. There is no relevant family history pertinent to the presenting complaint Exam Narrative: GENERAL: Well-appearing HEAD: Normocephalic, atraumatic. EYES: Right eye lid swelling/redness surrounding the eye, no occlusion. No conjunctival injection, no purulent drainage. EOMI. Lid eversion shows no foreign body ENT: Mucous membranes pink and moist. No rhinorrhea. TMs normal bilaterally. Throat normal. Uvula midline. CHEST: Clear to auscultation. HEART: Regular rate and rhythm. ABDOMEN: Soft, nontender, nondistended SKIN: Right AC area with erythema, mild swelling, evidence of scratching. No blisters or open areas. Warm, dry, Normal skin turgor. NEURO: No focal deficits. Alert and oriented x3 PSYCH: Normal affect. Course Course Emergency Course: Patient is aware of diagnosis, understands and agrees to treatment plan. Anticipatory guidance given. Patient agrees to follow-up as directed and is aware of reasons to seek care at the emergency department. Portions of this record may have been created with voice recognition software Level of Care: Express Care Visit Vital Signs Vital signs: Vital Signs Temperature 98.1 F 02/13/25 13:33 Pulse Rate 80 02/13/25 13:33 Respiratory Rate 20 02/13/25 13:33 Blood Pressure 217/80 H 02/13/25 13:33 Pulse Oximetry 99 02/13/25 13:33 Oxygen Delivery Room Air 02/13/25 13:33 Temperature 98.1 F 02/13/25 13:33 Pulse Rate 80 02/13/25 13:33 Respiratory Rate 20 02/13/25 13:33 Blood Pressure 217/80 H 02/13/25 13:33 Pulse Oximetry 99 02/13/25 13:33 Oxygen Delivery Room Air 02/13/25 13:33 MDM - Eye Problem MDM Narrative Medical decision making narrative: Discussed physical exam findings; right eye preseptal cellulitis, right forearm cellulitis vs dermatitis. Rx steroid and abx. Advised supportive measures and signs/symptoms to go to the ER. Pt is appropriate for outpt treatment and f/u. Pt is aware of elevated BP on arrival, will take bp meds as directed when she gets home. Differential Diagnosis Differential diagnosis: Likely corneal abrasion, conjunctivitis, acute iritis and other Discharge Plan Discharge Clinical Impression: Preseptal cellulitis of right eye Patient Disposition: Home Condition: Stable Instructions: Antibiotic Form, Periorbital Cellulitis (ED) Additional Instructions: Take steroids and antibiotic as directed. Benadryl every 8 hours as needed for itching. Or you can take Zyrtec according to package directions. Cool compresses to the sites of itching, avoid hot water. Avoid scratching to reduce the risk of infection Follow up with your primary care provider Go to the ER for worsening symptoms or concerns or if no improvement in the next 24 hours (lip, tongue, throat swelling/itching, trouble breathing etc) Patient Language: Ukrainian Prescriptions: New prednisone 20 mg tablet 40 mg PO DAILY 4 Days Qty: 8 0RF amoxicillin-pot clavulanate 875-125 mg tablet 1 tablet PO Q12H 7 Days Qty: 14 0RF No Action atorvastatin 40 mg tablet losartan 100 mg tablet ticagrelor [Brilinta] 90 mg tablet aspirin [Baby Aspirin] .ROUTE Follow-up/Referrals: UNKNOWN,DOCTOR [Primary Care Provider] Time of Disposition: 13:49
== END 2025-02-13 13:56 | disposition home or self-care (01) ==
PROVIDERS: Emergency Provider Nurse Practitioner Family
DX: L03.213 Periorbital cellulitis (principal)
CPT/HCPCS: 99203; G0463